=== PATIENT | female | born 1985 | race African-American/Black ===

== ENCOUNTER 2022-07-17 18:10 | Observation (INO) | payer OTHER, MEDICAID, SELFPAY ==
[2022-07-17] VITALS (32 sets, daily range): BP systolic 121–163; BP diastolic 65–78; PULSE 88–107; O2SAT 96–100; BMI 41.2
--- NOTE | 2022-07-17 19:10 | PM.IMHP ---
H&P: HPI History of Present Illness Date/Time: 07/17/22 19:10 Chief Complaint: Contractions Narrative: Patient is a G [id number] at 30 5/7 weeks with history of incompetent cervix with prior mid second trimester deliveries. Had to other deliveries at 32 and 33 weeks with cerclage. She had cerclage placed with current . She is seen at [facility] at [place]. She had cerclage removed on 07/13/22 due to pain at cerclage site. Prior to that had episode of gastroenteritis and dehydration. She states had contractions this week and they stopped for a few days and went to [facility] this evening and started having contractions. Denies LOF. Cervix on L and D . Bedside ultrasound confirmed vertex presentation. Review of Systems Review of Systems: All systems reviewed & are unremarkable except as noted in HPI and below Constitutional: Constitutional: Reports no additional constitutional complaints and Denies headache(s) Eyes: Eyes: Denies spots in vision ENT: Reports system reviewed and no additional complaints, except as documented and Denies headache(s) Cardiovascular: Cardiovascular: Denies chest pain and Denies dyspnea Respiratory: Respiratory: Denies dyspnea Gastrointestinal: Gastrointestinal: Reports no additional gastrointestinal complaints Genitourinary: Genitourinary: Reports amenorrhea Musculoskeletal: Musculoskeletal: Reports no additional musculoskeletal complaints Integumentary/Breasts: Skin/Breast: Denies breast mass and Denies rash Neurologic: Denies headache(s) Psychiatric: Psychiatric: Reports no additional psychiatric complaints Meds Vital Signs Vital Signs - 24 hr 07/17/22 18:52 07/17/22 19:01 07/17/22 19:09 Pulse Rate 91 89 Blood Pressure 130/78 121/72 Pulse Oximetry 99 Exam Narrative: FHT 145 Cat 1 Const: General: no acute distress HENMT: Head: normal to inspection Eyes: General: appearance normal, both eyes and all related structures Resp: Effort & Inspection: normal respiratory effort Cardio: Rate: regular rate GI: Other: Gravid no fundal tenderness no right upper quadrant pain : Other: cervix /-2 Skin: General skin exam: no rashes or lesions noted Neuro: Cognition (Neuro): normal cognition Extrem: General: normal to inspection Psych: Mental Status: mental status grossly normal Assessment and Plan Assessment and plan (1) labor: Code(s): O60.00 - labor without delivery, unspecified trimester Status: Acute Assessment and Plan: Admit. IV. GBS culture. Magnesium IV. IV ampicillin. Will transfer to [facility]. I talked with resident Dr. Jaocbsen, accepting physician Jose Alfredo.
[2022-07-17] MEDS: TERBUTALINE SULFATE 1 MG/ML VIAL 0.25 MG SUB-Q (19:17)
[2022-07-17] MEDS: MAGNESIUM SULF 6 GM/WATER150ML 6 GM/150 ML BAG IVPB (19:18)
[2022-07-17] MEDS: BETAMETHASONE SOD PHOS/ACETATE 30 MG/5 ML VIAL 12 MG IM (19:30)
[2022-07-17 19:47] LABS: Hematocrit 34.6 % (37.0-47.0); Hemoglobin 11.5 g/dL (12.0-15.0); Mean Corpuscular HGB Conc 33.2 g/dl (32-36); Mean Corpuscular Hemoglobin 30.4 pg (26-34); Mean Corpuscular Volume 91.5 fl (80-100); Mean Platelet Volume 11.9 fl (7.4-10.4); Platelet Count Result 172 k/mm3 (150-375); Red Blood Count 3.78 M/mm3 (4.2-5.4); Red Cell Distribution Width 13.8 % (11.5-14.5); White Blood Count 12.1 K/mm3 (4.5-10.0)
[2022-07-17] MEDS: MAGNESIUM SULF 20GM/WATER500ML 500 ML 50 MG IV CONT (19:48)
[2022-07-17 19:54] LABS: Appearance Urine Clear (Clear); Bacteria Urine Rare /hpf; Bilirubin Urine Negative (Negative); Blood Urine Negative (Negative); Color Urine Yellow (Yellow); Glucose Urine UA Negative (Negative); Ketones Urine Negative (Negative); Leukocyte Esterase Ur Trace LEU/UL (Negative); Nitrate Urine Negative (Negative); Non Pathogenic Casts 0-2; Protein Urine Negative (Negative); Specific Grav Ur 1.016 (1.001-1.035); Squamous Epithelial Cell Urine Occasional /hpf (Few); WBC Urine 0-5 /hpf
[2022-07-17 20:03] LABS: Add Urine Microscopic? YES
[2022-07-17] MEDS: AMPICILLIN 2 GM/NS 100 ML 2 GM/100 ML BAG IVPB (20:15)
[2022-07-17 20:19] LABS: Fetal Fibronectin Positive
--- NOTE | 2022-07-18 01:08 | OBADM ---
This patient, Jessica Saavedra, admitted to the OB room OB Post 116 for observation. Patient/family oriented to hospital policies and general routines including ID bracelet, bed and alarms, visiting hours, pain management, procedures, bathroom and other care routines, personal items, smoking policy, room service/diet, and visiting hours. Patient/Family are encouraged to report perceived risks to care and to ask questions if they do not understand what they are told or what they should do.
[2022-07-20 16:55] LABS: Rapid Plasma Reagin Non-Reactive (NonReactive)
--- NOTE | 2022-07-28 10:15 | P.PNOB_ITS ---
OB - Triage/Final Diagnosis Visit Information Comments/Additional reasons for admission: I have assessed the risk for this patient, Jessica Saavedra, and determined that she would benefit from observation care. Evaluation Laboratory results: Laboratory Tests 07/17/22 19:39 WBC 12.1 H RBC 3.78 L Hgb 11.5 L Hct 34.6 L MCV 91.5 MCH 30.4 MCHC 33.2 RDW 13.8 Plt Count 172 MPV 11.9 H Urine Color Yellow Urine Appearance Clear Urine pH 6.0 Ur Specific [place] 1.016 Urine Protein Negative Urine Glucose (UA) Negative Urine Ketones Negative Ur Blood (Man) Negative Urine Nitrate Negative Urine Bilirubin Negative Urine Urobilinogen 1.0 Leukocyte Esterase Rfl Trace H Urine RBC 3-5 H Urine WBC 0-5 Ur Squamous Epith Cells Occasional Urine Bacteria Rare Urine Casts 0-2 RPR Non-reactive Fibronectin Positive Blood Type O Positive Antibody Screen Negative Final Diagnosis (1) labor: Code(s): O60.00 - labor without delivery, unspecified trimester Status: Acute
--- NOTE | 2022-08-07 10:00 | P.PNOB_ITS ---
OB - Triage/Final Diagnosis Visit Information Comments/Additional reasons for admission: I have assessed the risk for this patient, Jessica Saavedra, and determined that she would benefit from observation care. Evaluation Laboratory results: Laboratory Tests 07/17/22 19:39 WBC 12.1 H RBC 3.78 L Hgb 11.5 L Hct 34.6 L MCV 91.5 MCH 30.4 MCHC 33.2 RDW 13.8 Plt Count 172 MPV 11.9 H Urine Color Yellow Urine Appearance Clear Urine pH 6.0 Ur Specific [place] 1.016 Urine Protein Negative Urine Glucose (UA) Negative Urine Ketones Negative Ur Blood (Man) Negative Urine Nitrate Negative Urine Bilirubin Negative Urine Urobilinogen 1.0 Leukocyte Esterase Rfl Trace H Urine RBC 3-5 H Urine WBC 0-5 Ur Squamous Epith Cells Occasional Urine Bacteria Rare Urine Casts 0-2 RPR Non-reactive Fibronectin Positive Blood Type O Positive Antibody Screen Negative
== END 2022-07-17 21:30 ==
PROVIDERS: Admitting Provider Obstetrics & Gynecology; PCP Family Medicine; Visit Provider Obstetrics & Gynecology
DX: O60.03 Preterm labor without delivery, third trimester (principal); Z3A.30 30 weeks gestation of pregnancy
CPT/HCPCS: 36415; 81001; 82731; 85027; 86592; 86850; 86900; 86901; 96372; 96374; 96375; G0378; G0379; J0290; J0702; J3105; J3475